=== PATIENT | male | born 1995 | race African-American/Black ===

== ENCOUNTER 2017-04-07 10:42 | Emergency (ER) | payer BC, MEDICAID ==
[~2017-04-07] VITALS: Ht 172.7 cm; Wt 67.6 kg
[2017-04-07] MEDS ORDERED: Hydrogen Peroxide 473ml Bottle TOPIC ONE ×2 (11:21→11:30)
[2017-04-07 12:02] VITALS: BP 123/66
--- NOTE | 2017-04-07 14:55 | Emergency Room Report ---
History of Present Illness General Chief Complaint: Earache Source: Patient Present Illness HPI 21-year-old male presenting with left earache. Patient states that he use Q- tip to take out wax however states that he still feels fullness in the ear. Denies any fever chills no purulent drainage Allergies: Uncoded Allergies: ENVIRONMENTAL (Allergy, Unknown, 04/07/17) Patient History Past Medical History: see triage record Past Surgical History: none Pertinent Family History: none Reviewed Nursing Documentation: PMH: Agreed, PSxH: Agreed Nursing Documentation-PMH Past Medical History: No Stated History Review of Systems All Other Systems: negative except mentioned in HPI Physical Exam Vital Signs Date Time Temp Pulse Resp B/P (MAP) Pulse Ox O2 Delivery O2 Flow Rate FiO2 04/07/17 10:47 97.9 50 16 110/65 100 Room Air Sp02 EP Interpretation: reviewed, normal General Appearance: normal inspection, well appearing, no apparent distress, alert, GCS 15, non-toxic Head: normocephalic, atraumatic Eyes: bilateral eye normal inspection, bilateral eye PERRL, bilateral eye EOMI ENT: other - cerumen impaction bilateral ears Neck: normal inspection, full range of motion, supple Respiratory: normal inspection, lungs clear, normal breath sounds, no respiratory distress, no retraction, no wheezing, speaking full sentences, chest symmetrical Cardiovascular #1: normal inspection, regular rate, rhythm, no edema, normal capillary refill Cardiovascular #2: 2+ radial (R), 2+ radial (L) Gastrointestinal: normal inspection, non tender, soft, non-distended, no guarding Genitourinary: no CVA tenderness Musculoskeletal: normal inspection, back normal, normal range of motion, non- tender Neurologic: normal inspection, alert, oriented x3, responsive, motor strength/ tone normal, sensory intact, normal gait, speech normal Psychiatric: normal inspection, judgement/insight normal, memory normal Skin: normal inspection, normal color, no rash, warm/dry, well hydrated, normal turgor Medical Decision Making Diagnostic Impression: Primary Impression: Impacted cerumen of left ear Additional Impression: Earache, left ER Course 21 yo M with b/l impacted cerumen Plan cerumen impaction removal ER course patient s/ irrigation/flushing with hydrogen peroxide improvement of sx Dispo DCed home with close pmd fu Last Vital Signs Date Time Temp Pulse Resp B/P (MAP) Pulse Ox O2 Delivery O2 Flow Rate FiO2 04/07/17 12:02 98.0 74 18 123/66 100 Room Air Disposition: HOME, SELF-CARE Condition: Stable Referrals: [facility]ERR[facility] (PCP) Patient Instructions: Cerumelibrado Impaction, Earache Luc Hu M.D. Apr 07, 2017 14:55
== END 2017-04-07 12:15 | disposition home or self-care (01) ==
LOC: EMR 10:50
DX: H61.22 Impacted cerumen, left ear (principal)
CPT/HCPCS: 99283; Z7502

== ENCOUNTER 2020-08-04 08:32 | Emergency (ER) | payer MEDICAID ==
[~2020-08-04] VITALS: Ht 172.7 cm; Wt 66.7 kg
[2020-08-04 08:35] VITALS: BP 116/76
[2020-08-04] MEDS ORDERED: OFLOXACIN10 ML OP ×3 (09:02→09:15)
--- NOTE | 2020-08-04 09:05 | NUR ---
Patient presented to the ER with c/o earache to bilateral ears. He reported that it's been going on for some time now and he became desperate today. No significant medical issues. Environmental allergies.
--- NOTE | 2020-08-04 09:06 | Emergency Room Report ---
History of Present Illness General Chief Complaint: Earache Source: Patient Present Illness HPI Disclaimer: Please note that this report is being documented using [employer] technology. This can lead to erroneous entry secondary to incorrect interpretation by the dictating instrument. HPI: 24-year-old male presents for evaluation of ringing in his right ear. States that it started again yesterday though this has been happening intermittently for years. Notes history of cerumen impaction. Denies changes in hearing recently. He did recently insert a Q-tip deeply into his right ear after which the ringing started. Denies changes in balance or coordination. Denies loss of hearing. Reports pain in both ears but this is a ongoing issue. Denies drainage. Denies fever or chills. PMH: Reviewed PSH: Reviewed Allergies: Reviewed Social Hx: Reviewed Allergies: Uncoded Allergies: ENVIRONMENTAL (Allergy, Unknown, 04/07/17) COVID-19 Screening Contact w/high risk pt: No Experienced COVID-19 symptoms?: No COVID-19 Testing performed RELEASE SPECIALIST: No Nursing Documentation-PMH Past Medical History: No Stated History Review of Systems All Other Systems: negative except mentioned in HPI Physical Exam Vital Signs Date Time Temp Pulse Resp B/P (MAP) Pulse Ox O2 Delivery O2 Flow Rate FiO2 08/04/20 08:35 98.6 75 18 116/76 (89) 99 Room Air General: Awake and alert, no acute distress HEENT: NC/AT. EOMI. both external auditory canals are completely impacted with cerumen. Cannot visualize tympanic membrane. No evidence of mastoiditis. No tenderness of malignant otitis externa. No purulence. There is dried blood in the right external auditory canal. Resp: Normal work of breathing Skin: Intact. No abrasions, laceration or rash over the exposed skin MSK: Normal tone and bulk. Moving all extremities. No obvious deformity. Neuro: Awake and alert. Mentating appropriately Medical Decision Making Diagnostic Impression: Primary Impression: Bilateral impacted cerumen ER Course 22-year-old male presents with ringing in his right ear. Differential includes not limited to cerumen impaction, otitis media, otitis externa, perforated tympanic membrane. There is dried blood in the right external auditory canal which may represent a tympanic membrane puncture. I removed a moderate amount of cerumen from both ears but could not visualize the tympanic membrane on either side as ear wax is too deep and close to the TM. Will require referral to ENT. Will start on ofloxacin to cover for possible TM rupture. Follow-up with ENT through referral from his PMD. Instructed to return new or worsening symptoms. Counseled to no longer insert Q-tips into the inner ear. Last Vital Signs Date Time Temp Pulse Resp B/P (MAP) Pulse Ox O2 Delivery O2 Flow Rate FiO2 08/04/20 08:35 98.6 75 18 116/76 (89) 99 Room Air Disposition: HOME, SELF-CARE Condition: Stable Scripts Ofloxacin (Ofloxacin) 5 Ml Drops 10 ML OP DAILY for 10 Days, #100 ML Prov: Maycol Rudolph MD 08/04/20 Referrals: [facility] Patient Instructions: Cerumen Impaction Additional Instructions: Follow-up with ear nose and throat to discuss recurrent ear wax buildup and for full ear evaluation. Rinse under hot water. Follow-up with your primary doctor as soon as possible. Return with new or worsening symptoms. Maycol Rudolph MD Aug 04, 2020 09:06
== END 2020-08-04 09:08 | disposition home or self-care (01) ==
LOC: EMR 09:06
DX: H61.23 Impacted cerumen, bilateral (principal); Z91.09 Other allergy status, other than to drugs and biological substances
CPT/HCPCS: 99282